=== PATIENT | male | born 1965 | race Hispanic/Latino ===

== ENCOUNTER 2017-05-09 11:53 | Emergency (ER) | payer SELFPAY ==
[2017-05-09] MEDS ORDERED: Lidocaine 1% 20 ML MDV ONE (12:07)
== END 2017-05-09 13:03 | disposition home or self-care (01) ==
LOC: NAV ERS 11:53
DX: S71.111A Laceration without foreign body, right thigh, initial encounter (principal); W27.0XXA Contact with workbench tool, initial encounter; Y92.69 Other specified industrial and construction area as the place of occurrence of the external cause; Y99.0 Civilian activity done for income or pay
CPT/HCPCS: 12004; J2001